=== PATIENT | male | born 1965 | race Caucasian/White ===

== ENCOUNTER 2021-05-17 02:23 | Inpatient (IN) ==
[2021-05-17] MEDS ORDERED: ONDANSETRON 4 MG/2 ML VIAL IV PRN (02:56)
[2021-05-17] MEDS ORDERED: diphenhydrAMINE 50 MG/1 ML VIAL IV STA (02:58)
[2021-05-17] MEDS: metroNIDAZOLE INJ 500 MG/100 ML PREMIX IV SCH ×3 (03:20→21:59)
[2021-05-17 05:05] LABS: Basophils % 0.4 % (0.0-0.8); Eosinophils # 0.2 10*3/uL (0.0-0.87); Eosinophils % 1.5 % (0.00-10.9); Hematocrit 41.1 VOL% (42.0-52.0); Hemoglobin 14.1 GM/DL (14.0-18.0); Immature Granulocytes % 0.5 %; Immature Granulocytes Absolute 0.06 #; Lymphocytes # 1.9 10*3/uL (1.4-4.0); Lymphocytes % 16.7 % (21.2-54.2); Mean Corpuscular HGB Conc 34.3 GM/DL (32-36); Mean Corpuscular Volume 84.2 FL (87-102); Mean Platelet Volume 9.6 FL (9.6-12.0); Monocytes % 10.9 % (1.7-12.7); Platelet Count 189 T/CUMM (130-400); Red Blood Count 4.88 MC/CUMM (3.8-5.5); Red Cell Distribution Width 12.9 % (9.3-17.3); White Blood Count 11.2 T/CUMM (4-12)
[2021-05-17] MEDS: DEXTROSE 5% NACL 0.45% 1,000 ML IV SCH ×2 (05:23→17:18)
[2021-05-17] MEDS: HYDROmorphone 2 MG/1 ML VIAL IV PRN (05:26)
[2021-05-17] MEDS: LEVOFLOXACIN INJ 750 MG/150 ML PREMIX IV SCH (05:27)
[2021-05-17 05:44] LABS: Albumin 3.7 G/DL (3.4-5.0); Bilirubin,Total 0.6 MG/DL (0.20-1.00); Calcium 8.9 MG/DL (8.5-10.1); Osmolality,Calculated 268.1 MOS/KG (273-304); Potassium 3.8 MMOL/L (3.5-5.1); Total Protein 7.4 G/DL (6.4-8.2)
[2021-05-17] MEDS: PANTOPRAZOLE 40 MG VIAL IV SCH (09:07)
[2021-05-17] MEDS ORDERED: SEVOFLURANE 1 UNIT/15 MINUTE INH ONE (12:07)
[2021-05-17] MEDS ORDERED: ONDANSETRON 4 MG/2 ML VIAL ONE (12:07)
[2021-05-17] MEDS ORDERED: MIDAZOLAM 2 MG/2 ML VIAL ONE (12:07)
[2021-05-17] MEDS ORDERED: ROCURONIUM 50 MG/5 ML VIAL IV ONE (12:07)
[2021-05-17] MEDS ORDERED: SUCCINYLCHOLINE 200 MG/10 ML VIAL ONE (12:07)
[2021-05-17] MEDS ORDERED: propofoL 200 MG/20 ML VIAL IV ONE (12:07)
[2021-05-17] MEDS ORDERED: ACETAMINOPHEN INJ 1,000 MG/100 ML VIAL IV ONE ×2 (12:07→12:30)
[2021-05-17] MEDS ORDERED: fentaNYL 100 MCG/2 ML VIAL ONE (12:07)
[2021-05-17] MEDS ORDERED: PHENYLEPHRINE 1 MG/10 ML SYRINGE IV ONE (12:07)
[2021-05-17] MEDS ORDERED: LIDOCAINE 2% 5 ML VIAL ONE (12:07)
[2021-05-18] MEDS ORDERED: ACETAMINOPHEN 325 MG TABLET PO PRN (02:44)
[2021-05-18] MEDS: DEXTROSE 5% NACL 0.45% 1,000 ML IV SCH ×3 (02:56→15:03)
[2021-05-18] MEDS: LEVOFLOXACIN INJ 750 MG/150 ML PREMIX IV SCH (02:58)
[2021-05-18] MEDS: metroNIDAZOLE INJ 500 MG/100 ML PREMIX IV SCH (06:11)
[2021-05-18] MEDS: HYDROmorphone 2 MG/1 ML VIAL IV PRN (06:38)
[2021-05-18] MEDS: PANTOPRAZOLE 40 MG VIAL IV SCH (09:04)
[2021-05-18 09:13] VITALS: BP 113/55
== END 2021-05-18 11:14 | disposition home or self-care (01) | DRG 346 ==
LOC: EDBD → EDUNIT# → N.ED 02:23 → N.EDINP 03:15 → N.3E 03:24
PROVIDERS: ADMIT Surgery; ATTEND Surgery